=== PATIENT | female | born 1960 | race Caucasian/White ===

== ENCOUNTER 2018-12-25 09:24 | Day surgery (SDC) | payer MEDICARE, MEDICAID ==
[2018-12-21 15:30] VITALS: BMI 24.7
[2018-12-25] MEDS ORDERED: Lidocaine 1% PF 5 ML VIAL ONE (11:15)
[2018-12-25] MEDS ORDERED: PROPOFOL 200 MG/20 ML VIAL ONE (11:15)
--- NOTE | 2018-12-25 12:48 | OP ---
DATE OF PROCEDURE: 12/25/2018 PROCEDURE PERFORMED: Colonoscopy with biopsies and polypectomy. INDICATION FOR PROCEDURE: Chronic diarrhea. DESCRIPTION OF PROCEDURE: After the risks and benefits of the procedure were explained to the patient including risks of bleeding, infection, perforation, reactions to anesthesia, aspiration and/or pain, informed consent was obtained. The patient was then taken to the endoscopy suite, where deep sedation was administered via propofol and the anesthesia support. Once adequate sedation was achieved, a digital rectal exam was performed followed by introduction of the standard colonoscope into the rectum and advanced to the terminal ileum. The quality of the prep was good, although there was a fair amount of adherent stool seen throughout the entire colon that was partially amenable to irrigation and suctioning resulting in a good prep. The patient tolerated the procedure well with no immediate perioperative complications. Upon completion of the procedure, all equipment was removed from the patient and she was transferred to [facility] in satisfactory condition. FINDINGS: Digital rectal exam, a small external hemorrhoid seen on external examination. Colon findings: Normal-appearing mucosa was seen within the terminal ileum. However, slightly increased mucosal erythema with mild granularity and loss of vascularity was seen throughout the entire colon including the cecum, ascending, transverse, descending, sigmoid colons, and rectum. The appendiceal orifice and the ileocecal valve did appear normal with the increased mucosal erythema seen throughout the entire colon. Random colonic biopsies were obtained from the right colon, transverse colon, and left colon and placed in the respective jars. Two polyps measuring 3 to 4 mm in diameter were seen in the transverse colon and completely removed with snare cautery polypectomy. An additional rectal polyp measuring 3 mm in size was seen within the rectum and completely removed with cold snare polypectomy. Normal-appearing mucosa was seen on rectal retroflexion. IMPRESSION: 1. Mild mucosal erythema affecting the entire colon with granularity and loss of vascularity concerning for inflammatory bowel disease versus infection. 2. Two 3 to 4 mm transverse colon polyps, status post hot snare polypectomy. 3. A 2 to 3 mm rectal polyp, status post cold snare polypectomy. 4. Small external hemorrhoids. RECOMMENDATIONS: 1. We will follow up on the biopsy and polypectomy results with repeat colonoscopy interval depending on the results. 2. We will continue higher fiber diet and attempt to bulk up her stools. 3. Stronger recommendation, cessation of smoking as this could potentially cause a flare of possible inflammatory bowel disease/ulcer colitis. 4. Follow up in the GI clinic in 3 weeks for further management of chronic diarrhea. Job ID: [id number]
== END 2018-12-25 12:20 | disposition home or self-care (01) ==
LOC: SDC 09:24
PROVIDERS: ATTEND Internal Medicine
PROC: 0DBP8ZX Excision of Rectum, Via Natural or Artificial Opening Endoscopic, Diagnostic (ICD-10-PCS; principal; 2018-12-25)
PROC: 0DBL8ZX Excision of Transverse Colon, Via Natural or Artificial Opening Endoscopic, Diagnostic (ICD-10-PCS; 2018-12-25)
PROC: 0DBG8ZX Excision of Left Large Intestine, Via Natural or Artificial Opening Endoscopic, Diagnostic (ICD-10-PCS; 2018-12-25)
PROC: 0DBL8ZX Excision of Transverse Colon, Via Natural or Artificial Opening Endoscopic, Diagnostic (ICD-10-PCS; 2018-12-25)
PROC: 0DBF8ZZ Excision of Right Large Intestine, Via Natural or Artificial Opening Endoscopic (ICD-10-PCS; 2018-12-25)
DX: D12.3 Benign neoplasm of transverse colon (principal); D12.8 Benign neoplasm of rectum; K52.9 Noninfective gastroenteritis and colitis, unspecified; K64.4 Residual hemorrhoidal skin tags; K21.9 Gastro-esophageal reflux disease without esophagitis; F41.9 Anxiety disorder, unspecified; M19.90 Unspecified osteoarthritis, unspecified site; J44.9 Chronic obstructive pulmonary disease, unspecified; I10 Essential (primary) hypertension; E78.00 Pure hypercholesterolemia, unspecified; F17.210 Nicotine dependence, cigarettes, uncomplicated; Z86.010 Personal history of colon polyps; Z88.0 Allergy status to penicillin; Z79.82 Long term (current) use of aspirin; Z79.899 Other long term (current) drug therapy
CPT/HCPCS: 88305; J2001; J2704